=== PATIENT | male | born 1995 | race Hispanic/Latino ===

== ENCOUNTER 2017-01-01 16:21 | Emergency (ER) | payer SELFPAY ==
[2017-01-01] MEDS ORDERED: Ibuprofen 800 MG TAB ONE (16:58)
--- NOTE | 2017-01-01 18:56 | RAD ---
RIGHT KNEE 4 VIEWS: Date: 01/01/17 HISTORY: Injury. COMPARISON: None. FINDINGS: No acute fracture or malalignment. Popliteal vascular stent is present. There appears to be a punctate radiopacity along the medial soft tissues seen best on the internal ob lique and lateral radiograph. IMPRESSION: No acute fracture or malalignment. POS: [facility]
== END 2017-01-01 18:15 | disposition home or self-care (01) ==
LOC: ERS 16:21
DX: S83.91XA Sprain of unspecified site of right knee, initial encounter (principal); Z87.891 Personal history of nicotine dependence; W19.XXXA Unspecified fall, initial encounter
CPT/HCPCS: 99406